=== PATIENT | male | born 1995 ===

== ENCOUNTER 2023-04-27 10:03 | Outpatient (CLI) | payer OTHER ==
--- NOTE | 2023-04-27 11:45 | MRI Report ---
PROCEDURE: LUMBAR SPINE WO INDICATIONS: CERVICAL AND LUMBAR RADICULOPATHY TECHNIQUE: Noncontrast sagittal T1 spin echo and T2 fast echo, sagittal STIR, axial T1 and T2 fast spin echo thr ough the lumbar spine. In cases with scoliosis, additional coronal T2 fast spin echo may be performe d. COMPARISON: None. FINDINGS: Image quality: Excellent. Alignment and Curvature: There is normal bony alignment. Bone Marrow: Marrow is of normal overall signal. No acute vertebral body compression fractures. Spinal Cord: Conus medullaris terminates at the L1 level. Visualized cord demonstrates normal signa l and size. Paraspinous Soft Tissues: No paravertebral masses. 1.5 cm right adrenal nodule. T12-L1: Normal in appearance. L1-L2: Normal in appearance. L2-L3: Normal in appearance. L3-L4: Normal in appearance. L4-L5: Normal in appearance. L5-S1: Normal in appearance. IMPRESSION: Normal lumbar MRI. No evidence of degenerative disc disease. 1.5 cm right adrenal nodule. Consider CT or MRI characterization (adrenal mass protocol). Reviewed by: Chauncey Redmond on 04/27/2023 11:44 AM PDT Approved by: Chauncey Redmond on 04/27/2023 11:44 AM PDT Station ID: [id number]
--- NOTE | 2023-04-27 16:43 | MRI Report ---
PROCEDURE: CERVICAL SPINE WO INDICATIONS: CERVICAL AND LUMBAR RADICULOPATHY TECHNIQUE: Noncontrast sagittal T1 spin echo and T2 fast spin echo, sagittal STIR, foraminal oblique sagittal T2 fast spin echo, and axial gradient echo or T2 fast spin echo through the cervical spine. COMPARISON: None. FINDINGS: Image quality: Excellent. Alignment and Curvature: There is loss of normal cervical lordosis. Bone Marrow: Marrow demonstrates normal overall signal. Spinal Cord: Visualized spinal cord has normal size and signal. No cerebellar tonsillar herniation. Paraspinous Soft Tissues: No paravertebral masses. Prevertebral soft tissues are normal in thicknes s. C2-C3: Normal in appearance. C3-C4: Mild disc desiccation. Mild facet and uncovertebral hypertrophy bilaterally. No significant canal stenosis. Mild right foraminal stenosis. No left foraminal stenosis. C4-C5: Mild disc desiccation. No significant canal nor foraminal stenosis. C5-C6: Mild disc desiccation and diffuse disc bulge. Mild facet and uncovertebral hypertrophy. Mild canal and foraminal stenosis bilaterally. C6-C7: Normal in appearance. C7-T1: Normal in appearance. IMPRESSION: Mild multilevel degenerative disc and facet disease as well as uncovertebral hypertrophy, causing mil d canal and foraminal stenoses. No neural impingement. Reviewed by: Dany Nathan MD on 04/27/2023 4:41 PM PDT Approved by: Dany Nathan MD on 04/27/2023 4:41 PM PDT Station ID: [id number]
== END 2023-04-27 10:04 | disposition home or self-care (01) ==
LOC: DI 10:03
PROVIDERS: ATTEND General Practice
DX: M47.22 Other spondylosis with radiculopathy, cervical region (principal); M50.11 Cervical disc disorder with radiculopathy, high cervical region; M48.02 Spinal stenosis, cervical region

== ENCOUNTER 2024-02-09 12:29 | Day surgery (SDC) | payer OTHER ==
[~2024-02-09 12:29] MED LIST: BUPIVACAINE 0.25% PF 30 ML VIAL ONE
[2024-02-09] MEDS ORDERED: ceFAZolin 2 GM VIAL ONE (12:33)
[2024-02-09] MEDS ORDERED: metroNIDAZOLE 500 MG/100 ML 500 MG/100 ML BAG ONE (12:33)
[2024-02-09] MEDS: LACTATED RINGERS 1,000 ML IV ONE ×3 (12:35→15:41)
[2024-02-09] MEDS ORDERED: MIDAZOLAM 2 MG/2 ML VIAL ONE (13:05)
[2024-02-09] MEDS ORDERED: fentaNYL 100 MCG/2 ML VIAL ONE ×2 (13:05→15:18)
[2024-02-09] MEDS ORDERED: LIDOCAINE-PF 2% 10 ML AMP SUBQ ONE (13:10)
[2024-02-09] MEDS ORDERED: PROPOFOL 200 MG/20 ML VIAL IVP ONE (13:12)
--- NOTE | 2024-02-09 13:26 | ANESTHESIA ---
Pre-Anesthesia VS, & Labs - Diagnosis pilonidal cyst - Procedure excision pilonidal cyst Vital Signs: Temp Pulse Resp BP Pulse Ox O2 Flow Rate 36.4 C L 79 14 133/81 H 98 02/09/24 12:35 02/09/24 12:35 02/09/24 12:35 02/09/24 12:35 02/09/24 12:35 Height: 5 ft 8 in Weight (kg): 87.2 kg Body Mass Index: 29.2 BMI Classification: Overweight - NPO >8 hours Home Medications and Allergies Home Medications: Ambulatory Orders No Known Home Medications 01/31/24 No Known Home Medications 01/31/24 Allergies/Adverse Reactions: Allergies Allergy/AdvReac Type Severity Reaction Status Date / Time No Known Drug Allergies Allergy Verified 01/31/24 14:22 Anes History & Medical History - Anesthetic History Anesthesia Complications: reports: No previous complications - Medical History Cardiovascular: reports: None Pulmonary: reports: None Gastrointestinal: reports: None Urinary: reports: None Musculoskeletal: reports: Chronic back pain Endocrine/Autoimmune: reports: None Skin: reports: None Smoking Status: Never smoker Psychosocial: reports: Alcohol (rare) Exam General: Alert, Oriented x3 Dental: WNL Mouth Opening: Greater than 4 Fingerbreadths Neck Mobility: Normal Mallampati classification: II Respiratory: Lungs clear Cardiovascular: Regular rate Plan Anesthesia Type: General Consent for Procedure(s) Verified and Reviewed: Yes Code Status: Attempt Resuscitation ASA classification: 1-Healthy patient Is this case an emergency?: No
[2024-02-09] MEDS ORDERED: ATROPINE ABBOJECT 1 MG/10 ML SYRINGE IVP PRN (13:29)
[2024-02-09] MEDS ORDERED: NALOXONE 0.4 MG/ML VIAL IVP PRN (13:29)
[2024-02-09] MEDS ORDERED: METOCLOPRAMIDE 10 MG/2 ML VIAL IVP PRN (13:29)
[2024-02-09] MEDS ORDERED: HYDROmorphone 0.5 MG/0.5 ML SYRINGE IVP PRN ×2 (13:29→14:59)
[2024-02-09] MEDS ORDERED: MORPHINE 2 MG/ML CARPUJECT IVP PRN (13:29)
[2024-02-09] MEDS ORDERED: ONDANSETRON 4 MG/2 ML VIAL IVP PRN ×2 (13:29→14:59)
[2024-02-09] MEDS ORDERED: ePHEDrine 50 MG/ML VIAL IVP PRN (13:29)
--- NOTE | 2024-02-09 13:40 | HISTORY & PHYSICAL EXAMINATION ---
Chief Complaint - Chief Complaint Chief Complaint: here for pilonidal cyst surgery History of Present Illness - History Obtained From Records Reviewed: yes History obtained from: pt Exam Limitations: none - History of Present Illness HPI Comment/Other: history pilonidal cyst with pain and swelling for many months History - Past Medical History Cardiovascular: reports: None Respiratory: reports: None Endocrine/Autoimmune: reports: None GI: reports: None : reports: None HEENT: reports: None Psych: reports: Anxiety Musculoskeletal: reports: Chronic back pain Derm: reports: None MRSA Hx?: No Meds/Allgy - Home Medications Home Medications: Ambulatory Orders Medication Instructions Recorded Confirmed No Known Home Medications 01/31/24 01/31/24 - Allergies Allergies/Adverse Reactions: Allergies Allergy/AdvReac Type Severity Reaction Status Date / Time No Known Drug Allergies Allergy Verified 01/31/24 14:22 Review of Systems - Other Findings Other Findings: 10 pt ros as above otherwise unremarkable Exam - Vital Signs Vital Signs: Vital Signs x48h Temp Pulse Resp BP Pulse Ox 02/09/24 12:35 36.4 C L 79 14 133/81 H 98 - Physical Exam General Appearance: positive: No acute distress, Alert Eyes Bilateral: positive: PERRL, EOMI ENT: positive: No signs of dehydration Neck: positive: No JVD Respiratory: positive: No respiratory distress Cardiovascular: positive: Regular rate & rhythm Skin: positive: Other (large pilonidal cyst with inflammatory nodule present) Neurologic/Psychiatric: positive: Oriented x3 Conclusion/Plan - Problem List (1) Pilonidal cyst Conclusion/Plan: plan excision. parq held and consent obtained
[2024-02-09] MEDS ORDERED: LACTATED RINGERS 1,000 ML IV SCH (14:00)
[2024-02-09] MEDS: BUPIVACAINE 0.25% PF 30 ML VIAL SUBQ ONE ×3 (14:17)
[2024-02-09] MEDS ORDERED: KETOROLAC 30 MG/ML VIAL ONE (14:19)
[2024-02-09] MEDS ORDERED: ACETAMINOPHEN 1,000 MG/100 ML 1,000 MG/100 ML BAG IV ONE (14:19)
[2024-02-09] MEDS ORDERED: BUPIVACAINE 0.25% PF 30 ML VIAL ONE (14:35)
[2024-02-09] MEDS ORDERED: SUGAMMADEX 200 MG/2 ML VIAL IVP ONE (14:35)
[2024-02-09] MEDS: LACTATED RINGERS 100 ML IV ONE ×2 (15:05→15:27)
--- NOTE | 2024-02-09 15:07 | OPERATIVE REPORT ---
Operative Report - General Procedure Date: 02/09/24 Planned Procedure: pilonidal cyst excision Pre-Op Diagnosis: pilonidal cyst Procedure Performed: pilonidal cyst excision elvia type procedure Post Op Diagnosis: complex pilonidal cyst - Procedure Note Anesthesia Technique: General ET tube, Local Pathology: not sent Estimated Blood Loss (mL): 20 Drain/Tube Type: Other (none) Indications: painful and bleeding pilonidal cyst Findings: numerous sinuses and 5 cm cyst with large draining inflammatory nodule Complications: none - Other Other Information/Narrative: The patient was properly identified and brought to the operating room. General endotracheal anesthesia was induced and stretcher. The patient was carefully repositioned prone. Sequential compression devices were placed. Patient was prepped and draped in a sterile fashion and given preoperative antibiotics. Local anesthetic was given to the area. With an 11 blade small incisions were made around the sinus tracts. A right lateral elitical incision was then made. The chronic inflammatory nodule was excised and removed in continuity with the cyst. Skin flap was then raised. The pilonidal cyst and chronic inflammatory tissue was then removed back to normal healthy tissue. Hemostasis was assured. Deep subcutaneous tissue was closed with interrupted 2-0 Vicryl suture. Buried interrupted subdermal 3-0 Vicryl sutures were then placed. Vertical mattress interrupted 3-0 nylon sutures were then placed. Dressing was applied. Patient was repositioned supine on the stretcher. Patient was then awakened and brought to recovery in good condition.
[2024-02-09] MEDS: fentaNYL 100 MCG/2 ML VIAL IVP PRN (15:21)
--- NOTE | 2024-02-09 15:59 | ANESTHESIA POST OP EVALUATION ---
Anesthesia Post Eval - Post Anesthesia Eval Vitals: Last Vital Signs Temp 36.4 C L 02/09/24 15:45 Pulse 82 02/09/24 15:45 Resp 16 02/09/24 15:45 BP 134/82 H 02/09/24 15:45 Pulse Ox 97 02/09/24 15:45 O2 Flow Rate CV Function Including HR & BP: Stable Pain Control: Satisfactory Nausea & Vomiting: Negative Mental Status: Baseline Respiratory Status: Airway Patent Hydration Status: Satisfactory Anesthesia Complications: None
[2024-02-09] MEDS ORDERED: HYDROcod/ACETAM 5/325 MG TABLET ONE (16:07)
[2024-02-09] MEDS: HYDROcod/ACETAM 5/325 MG TABLET PO PRN (16:11)
[2024-02-09 16:20] VITALS: BP 137/95; O2SAT 96
== END 2024-02-09 12:30 | disposition home or self-care (01) ==
LOC: SDS 12:29
PROVIDERS: ATTEND Surgery
DX: L05.91 Pilonidal cyst without abscess (principal)
CPT/HCPCS: 11772; A9270; J0131; J7120

== ENCOUNTER 2024-04-19 12:31 | Outpatient (CLI) | payer OTHER ==
--- NOTE | 2024-04-19 21:39 | Ultrasound Report ---
PROCEDURE: Extremity Soft Tissue Limited INDICATIONS: HAND MASS. Focal soft tissue prominence of the left dorsal hand on XR at point of tende rness. TECHNIQUE: Real-time scanning was performed of the left hand, with image documentation. COMPARISON: No previous study is available for comparison FINDINGS: At the patient indicated palpable area of concern at the left hand/wrist dorsally, no sign ificant sonographic abnormality is seen. No definite cystic or solid mass. IMPRESSION: No significant sonographic abnormality is seen at the palpable area of concern. If sympt oms persist, consider MRI for further evaluation. Reviewed by: Ish Santiago MD on 04/19/2024 9:38 PM PDT Approved by: Ish Santiago MD on 04/19/2024 9:38 PM PDT Station ID: [id number]
== END 2024-04-19 12:32 | disposition home or self-care (01) ==
LOC: DI 12:31
DX: R22.32 Localized swelling, mass and lump, left upper limb (principal)

== ENCOUNTER 2024-06-20 13:29 | Outpatient (CLI) | payer OTHER ==
--- NOTE | 2024-06-21 16:46 | MRI Report ---
PROCEDURE: Shoulder RT WO INDICATIONS: RIGHT SHOULDER PAIN TECHNIQUE: Noncontrast oblique coronal T2 fast spin echo with fat saturation, oblique sagittal T1 spin echo and T2 fast spin echo with fat saturation, axial T1 spin echo and T2 fast spin echo with fat saturation t hrough the shoulder. COMPARISON: None. FINDINGS: Image quality: Excellent. Rotator cuff tendons are intact. Bicipital tendon within its normal position the bicipital groove. Gl enoid labrum is grossly unremarkable. There is some mild AC joint degenerative change present. No sig nificant glenohumeral joint degenerative change is seen. No para labral cyst formation is identified. No Hill-Sachs type deformity is present. No joint effusion is present. Visualized musculature appears within normal limits. IMPRESSION: 1. No evidence for significant internal derangement. 2. Mild AC joint degenerative change. Reviewed by: Damian Chao MD on 06/21/2024 4:45 PM PDT Approved by: Damian Chao MD on 06/21/2024 4:45 PM PDT Station ID: [id number]
== END 2024-06-20 13:30 | disposition home or self-care (01) ==
LOC: DI 13:29
DX: M19.011 Primary osteoarthritis, right shoulder (principal)